=== PATIENT | female | born 1970 ===

== ENCOUNTER 2017-04-02 00:01 | Emergency (ER) | payer OTHER ==
[2017-04-02] MEDS ORDERED: NS 0.9% 1000 ML* 1,000 ML IV ONE (00:47)
[2017-04-02] MEDS ORDERED: LORazepam INJ* 2 MG/ML 1 ML VIAL IV PUSH ONE (00:48)
[2017-04-02 02:24] LABS: Hematocrit 35 % (35-47); Hemoglobin 12.2 g/dl (12.0-16.0); Mean Corpuscular HGB Conc 35 g/dl (31-36); Mean Corpuscular Hemoglobin 30 pg (27-31); Mean Corpuscular Volume 88 fL (80-97); Mean Platelet Volume 9 um3 (7.4-10.4); Red Cell Distribution Width 13 % (10.5-15); White Blood Count 5.3 10^3/ul (3.5-10.8)
[2017-04-02 02:37] LABS: Alcohol < 10 mg/dL (<10)
[2017-04-02 02:38] LABS: ALT 13 U/L (7-52); AST 20 U/L (13-39); Albumin 3.8 g/dL (3.2-5.2); Alkaline Phosphatase 54 U/L (34-104); Anion Gap 4 mmol/L (2-11); Blood Urea Nitrogen 8 mg/dL (6-24); CO2 Carbon Dioxide 28 mmol/L (22-32); Chloride 104 mmol/L (101-111); EGFR African American 109.4 (>60); EGFR Non-African American 85.1 (>60); Globulin 2.7 g/dL (2-4); Glucose 106 mg/dL (70-100); Potassium 3.7 mmol/L (3.5-5.0); Sodium 136 mmol/L (133-145); Total Protein 6.5 g/dL (6.4-8.9)
--- NOTE | 2017-04-02 04:48 | ED ---
Audie Marinelli Thomas, scribed for Willian Brown MD on 04/02/17 at 0041 . Substance Abuse/Use - HPI Summary HPI Summary: The patient is a 46 y/o F who is brought in by [facility] after a large ingestion of CBD oil. The patient was using another persons bottle of CBD, which led to the large ingestion. The patient says I chugged it because normally they are droppers but it wasnt a dropper. She swallowed the oil. The patient reports frequent CBD use in the past. In the ED, she now c/o weakness, dry mouth, and a burning sensation. Pt denies chills. She is not on any medications. - History Of Current Complaint Chief Complaint: EDOverdose Stated Complaint: POSS OD Time Seen by Provider: 04/02/17 00:31 Hx Obtained From: Patient Hx Last Menstrual Period: 2 MONTHS AGO Ingestion History: Type/Name Of Drug - CBD oil Overdose Characteristics: Oral Character: Other - Weakness Aggravating Factor(s): Nothing Alleviating Factor(s): Nothing Associated Signs And Symptoms: Other: - Weakness, dry mouth, burning sensation; NEGATIVE: chills - Allergies/Home Medications Allergies/Adverse Reactions: Allergies Allergy/AdvReac Type Severity Reaction Status Date / Time No Known Allergies Allergy Verified 12/31/15 18:19 PMH/Surg Hx/FS Hx/Imm Hx Previously Healthy: Yes Endocrine/Hematology History: Denies: Hx Diabetes Cardiovascular History: Denies: Hx Myocardial Infarction Infectious Disease History: No Infectious Disease History: Denies: Hx Clostridium Difficile, Hx Hepatitis, Hx Human Immunodeficiency Virus (HIV), Hx of Known/Suspected MRSA, Hx Shingles, Hx Tuberculosis, Hx Known/ Suspected VRE, Hx Known/Suspected VRSA, History Other Infectious Disease, Traveled Outside the [place] in Last 30 Days - Family History Known Family History: Negative: Cardiac Disease, Hypertension, Diabetes - Social History Lives: With Family Alcohol Use: None Substance Use Type: Reports: None Smoking Status (MU): Never Smoked Tobacco Review of Systems Positive: Other - Generalized weakness, burning sensation. Negative: Chills Positive: Other - Dry mouth All Other Systems Reviewed And Are Negative: Yes Physical Exam - Summary Physical Exam Summary: VITAL SIGNS: Reviewed. GENERAL: Patient is a well-developed and nourished female who is lying comfortable in the stretcher. She is somewhat anxious and paranoid. She has taken CBD in the past but she did not use her normal bottle. Patient is not in any acute respiratory distress. HEAD AND FACE: No signs of trauma. No ecchymosis, hematomas or skull depressions. No sinus tenderness. EYES: PERRLA, EOMI x 2, No injected conjunctiva, no nystagmus. EARS: Hearing grossly intact. Ear canals and tympanic membranes are within normal limits. MOUTH: Oropharynx within normal limits. NECK: Supple, trachea is midline, no adenopathy, no JVD, no carotid bruit, no c- spine tenderness, neck with full ROM. CHEST: Symmetric, no tenderness at palpation LUNGS: Clear to auscultation bilaterally. No wheezing or crackles. CVS: Regular rate and rhythm, S1 and S2 present, no murmurs or gallops appreciated. ABDOMEN: Soft, non-tender. No signs of distention. No rebound no guarding, and no masses palpated. Bowel sounds are normal. EXTREMITIES: FROM in all major joints, no edema, no cyanosis or clubbing. NEURO: Alert and oriented x 3. No acute neurological deficits. Speech is normal and follows commands. SKIN: Dry and warm Triage Information Reviewed: Yes Vital Signs On Initial Exam: Initial Vitals BP 114/64 04/02/17 00:10 Vital Signs Reviewed: Yes Diagnostics - Vital Signs Vital Signs Temp Pulse Resp BP Pulse Ox 04/02/17 00:19 98.6 F 87 16 114/64 100 04/02/17 00:11 85 22 100 04/02/17 00:10 114/64 - Laboratory Result Diagrams: 04/02/17 02:10 04/02/17 02:10 Lab Statement: Any lab studies that have been ordered have been reviewed, and results considered in the medical decision making process. - EKG 02:00 Cardiac Rate: NL EKG Rhythm: Sinus Rhythm EKG Interpretation: 76 BPM. Nonspecific T-wave changes. Course/Dx - Course Course Of Treatment: Poison control called by nursing. Assessment/Plan: The patient is a 46 y/o F who is brought in by [facility] after a large ingestion of CBD oil. The patient was using another persons bottle of CBD , which led to the large ingestion. The patient says I chugged it because normally they are droppers but it wasnt a dropper. She swallowed the oil. The patient reports frequent CBD use in the past. In the ED, she now c/o weakness, dry mouth, and a burning sensation. Pt denies chills. She is not on any medications. In the ED course the patient was given IV fluids and Ativan. Bloodwork and toxicology was obtained. The patient is diagnosed with substance abuse. The patient is instructed to follow up with primary care. Patient is agreeable with this plan. - Diagnoses Provider Diagnoses: Substance abuse Discharge - Discharge Plan Condition: Stable Disposition: HOME Patient Education Materials: Cannabis Abuse (ED) Referrals: Anahy Chanel NP [Primary Care Provider] - 3 Days Additional Instructions: Follow up with your primary care provider in 3 days. Return to the emergency department for any new or worsening symptoms. The documentation as recorded by the Audie yang Thomas accurately reflects the service I personally performed and the decisions made by , Willian Brown MD.
[2017-04-02 05:38] VITALS: BP 92/56
== END 2017-04-02 05:38 | disposition home or self-care (01) ==
LOC: ED 00:01
DX: F19.10 Other psychoactive substance abuse, uncomplicated (principal)
CPT/HCPCS: 36415; 80053; 80320; 85025; 93005; 96360; 96374; 99284; G0480; J2060

== ENCOUNTER 2018-02-20 21:06 | Emergency (ER) | payer BC, OTHER ==
--- NOTE | 2018-02-20 23:08 | ED ---
Laceration/Wound HPI - HPI Summary HPI Summary: 47 year old female presents with right thumb laceration today. She states she closed her thumb in her car door. the area continues to bleed. Immunizations up-to-date. No medical conditions. She states she is not able to fully flex her thumb due to the laceration. On exam has 1 cm superficial laceration to IP joint. Cleaned area and place glue per patient's preference. Patient declined x-ray. placed in metal middle finger splint. Told keep the area dry. Patient understands agrees with plan. - History of Current Complaint Stated Complaint: RT THUMB INJURY Time Seen by Provider: 02/20/18 22:43 Hx Last Menstrual Period: 2 MONTHS AGO Pain Intensity: 5 - Allergy/Home Medications Allergies/Adverse Reactions: Allergies Allergy/AdvReac Type Severity Reaction Status Date / Time No Known Allergies Allergy Verified 12/31/15 18:19 Home Medications: Home Medications NK [No Home Medications Reported] 02/20/18 [History Confirmed 02/20/18] PMH/Surg Hx/FS Hx/Imm Hx Endocrine/Hematology History: Denies: Hx Diabetes Cardiovascular History: Denies: Hx Myocardial Infarction Infectious Disease History: No Infectious Disease History: Denies: Hx Clostridium Difficile, Hx Hepatitis, Hx Human Immunodeficiency Virus (HIV), Hx of Known/Suspected MRSA, Hx Shingles, Hx Tuberculosis, Hx Known/ Suspected VRE, Hx Known/Suspected VRSA, History Other Infectious Disease, Traveled Outside the in Last 30 Days - Family History Known Family History: Negative: Cardiac Disease, Hypertension, Diabetes - Social History Alcohol Use: None Substance Use Type: Reports: None Smoking Status (MU): Never Smoked Tobacco Review of Systems Negative: Fever Negative: Chest Pain Negative: Shortness Of Breath Positive: Other - right thumb lac All Other Systems Reviewed And Are Negative: Yes Physical Exam Triage Information Reviewed: Yes Vital Signs On Initial Exam: Initial Vitals Temp Pulse Resp BP Pulse Ox 97.7 F 78 15 118/64 99 02/20/18 21:11 02/20/18 21:11 02/20/18 21:11 02/20/18 21:11 02/20/18 21:11 Vital Signs Reviewed: Yes Appearance: Positive: Well-Appearing Skin: Positive: Warm, Dry, Other - 1cm superficial laceration to IP joint right thumb Head/Face: Positive: Normal Head/Face Inspection Eyes: Positive: Normal, Conjunctiva Clear ENT: Positive: Pharynx normal Respiratory/Lung Sounds: Positive: Clear to Auscultation, Breath Sounds Present Cardiovascular: Positive: Normal, RRR Musculoskeletal: Positive: Normal Neurological: Positive: Normal Psychiatric: Positive: Normal Procedures - Laceration/Wound Repair 1 Location: Other - right thumb Description: Linear Length, Depth and Shape: 1cm superficial Irrigated w/ Saline (ccs): 50 Closure: Skin Adhesive, SteriStrips Sterile Dressing Applied?: No - telfa and metal finger splint Diagnostics - Vital Signs Vital Signs Temp Pulse Resp BP Pulse Ox 02/20/18 21:11 97.7 F 78 15 118/64 99 - Laboratory Lab Statement: Any lab studies that have been ordered have been reviewed, and results considered in the medical decision making process. Laceration Repair Course/Dx - Course Course Of Treatment: 47 year old female presents with right thumb laceration today. She states she closed her thumb in her car door. the area continues to bleed. Immunizations up-to-date. No medical conditions. She states she is not able to fully flex her thumb due to the laceration. On exam has 1 cm superficial laceration to IP joint. Cleaned area and place glue per patient's preference. Patient declined x-ray. placed in metal middle finger splint. Told keep the area dry. Patient understands agrees with plan. - Differential Dx Differental Diagnoses: Abrasion, Avulsion, Laceration - Clinical Impression Provider Diagnoses: Laceration of right thumb Discharge - Sign-Out/Discharge Documenting (check all that apply): Patient Departure - Discharge Plan Condition: Good Disposition: HOME Patient Education Materials: Skin Adhesive Care (ED) Referrals: Anahy Chanel NP [Primary Care Provider] - Additional Instructions: Take Tylenol or ibuprofen for pain as needed every 6 hours Keep dry for 24 hours Glue will fall off on own Avoid scrubbing area keep splint on are for 7 days Return to ED if develop any signs of infection or any new or worsening symptoms - Billing Disposition and Condition Condition: GOOD Disposition: Home
[2018-02-20 23:27] VITALS: BP 102/66
== END 2018-02-20 23:28 | disposition home or self-care (01) ==
LOC: ED 21:06
DX: S61.011A Laceration without foreign body of right thumb without damage to nail, initial encounter (principal); W23.0XXA Caught, crushed, jammed, or pinched between moving objects, initial encounter; Y92.810 Car as the place of occurrence of the external cause
CPT/HCPCS: 12001; 99282